=== PATIENT | male | born 2000 | race African-American/Black ===

== ENCOUNTER 2023-05-03 14:48 | Emergency (ER) | payer OTHER ==
[2023-05-03 14:57] VITALS: BP 108/68; PULSE 83; RESP 18; TEMP 98.4; BMI 23.7
[2023-05-03] MEDS ORDERED: KETOROLAC TROMETHAMINE 30 MG/1 ML VIAL IM ONE (15:18)
[2023-05-03] MEDS ORDERED: KETOROLAC TROMETHAMINE 30 MG/1 ML VIAL ONE (15:21)
== END 2023-05-03 15:46 | disposition home or self-care (01) ==
LOC: JER 14:48
PROC: 3E0233Z Introduction of Anti-inflammatory into Muscle, Percutaneous Approach (ICD-10-PCS; principal; 2023-05-03)
DX: M54.50 Low back pain, unspecified (principal); M54.2 Cervicalgia; V89.2XXA Person injured in unspecified motor-vehicle accident, traffic, initial encounter; Y93.I9 Activity, other involving external motion; Y92.410 Unspecified street and highway as the place of occurrence of the external cause
CPT/HCPCS: 99284-25